=== PATIENT | female | born 1970 | race Two or more races ===

== ENCOUNTER 2018-04-09 18:58 | Inpatient (IN) | payer MEDICAID ==
[2018-04-09] MEDS ORDERED: LACTATED RINGER'S 1,000 ML IV (21:25)
[2018-04-09] MEDS ORDERED: CARBOPROST 250 MCG INJ IM (21:30)
[2018-04-09] MEDS ORDERED: LIDOCAINE 1% (MPF) 30 ML INJ INJ (21:30)
[2018-04-09] MEDS ORDERED: OXYTOCIN 30 UNITS/LR 500 ML IV ×3 (21:30)
[2018-04-09] MEDS ORDERED: METHYLERGONOVINE 0.2 MG INJ IM (21:30)
[2018-04-09] MEDS ORDERED: MISOPROSTOL 200 MCG TAB PR (21:30)
[2018-04-09 23:05] LABS: ADD MAN DIFF? NO
[2018-04-09 23:12] LABS: BASOPHILS % 0.3 % (0.0-2.0); EOSINOPHILS # 0.1 10^3/ul (0.0-0.5); EOSINOPHILS % 1.2 % (0.0-7.0); HEMATOCRIT 35.4 % (37.0-47.0); HEMOGLOBIN 11.8 g/dl (12.0-16.0); LYMPHOCYTES # 1.4 10^3/ul (0.8-2.9); LYMPHOCYTES % 17.9 % (15.0-51.0); MEAN CORPUSCULAR HEMOGLOBIN 31.4 pg (29.0-33.0); MEAN CORPUSCULAR HGB CONC 33.3 g/dl (32.0-37.0); MEAN CORPUSCULAR VOLUME 94.1 fl (82.0-101.0); MEAN PLATELET VOLUME 8.8 fl (7.4-10.4); MONOCYTE # 0.6 10^3/ul (0.3-0.9); MONOCYTES % 8.3 % (0.0-11.0); NEUTROPHIL # 5.4 10^3/ul (1.6-7.5); PLATELET COUNT 233 10^3/UL (140-415); RED BLOOD COUNT 3.76 10^6/ul (4.20-5.40); RED CELL DISTRIBUTION WIDTH 14.5 % (11.5-14.5)
[2018-04-09 23:12] LABS: WHITE BLOOD COUNT 7.7 10^3/ul (4.8-10.8)
[2018-04-09 23:33] LABS: INR 0.88; PT RATIO 0.9
[2018-04-09 23:34] LABS: PARTIAL THROMBOPLASTIN TIME 26.4 Sec (23.0-35.0)
[2018-04-10 00:03] LABS: HEPATITIS B SURFACE ANTIGEN NEGATIVE (NEGATIVE)
[2018-04-10] MEDS: LACTATED RINGER'S 1,000 ML IV ×4 (00:56→20:02)
[2018-04-10] MEDS: MISOPROSTOL 50 MCG CAPSULE PO ×2 (06:52→11:02)
[2018-04-10] MEDS: DEXTROSE 5%-LR 1,000 ML IV ×2 (08:55→17:19)
[2018-04-10 15:08] LABS: RAPID PLASMA REAGIN NONREACTIVE (NR)
[2018-04-10] MEDS: BUTORPHANOL 2 MG INJ IV ×2 (15:23→17:42)
[2018-04-10] MEDS ORDERED: DIPHENHYDRAMINE 50 MG INJ IV (20:00)
[2018-04-10] MEDS ORDERED: EPHEDrine SULFATE 50 MG/5 ML SYG IV (20:00)
[2018-04-10] MEDS ORDERED: NALOXONE (0.4 MG/ML) INJ IV (20:00)
[2018-04-10] MEDS ORDERED: ONDANSETRON 4 MG INJ IV (20:00)
[2018-04-10] MEDS ORDERED: FENTAnyl 2MCG/ML-ROPIV 0.2% 100 ML (20:04)
[2018-04-10] MEDS ORDERED: LIDOCAINE 1% (MPF) 30 ML INJ (22:04)
[2018-04-11] MEDS: LACTATED RINGER'S 1,000 ML IV ×2 (01:26→10:26)
[2018-04-11] MEDS: OXYTOCIN 30 UNITS/LR 500 ML IV ×2 (04:44→15:19)
[2018-04-11] MEDS: MINERAL OIL LIGHT 10 ML VIAL TOP (07:00)
[2018-04-11] MEDS: FENTAnyl 2MCG/ML-ROPIV 0.2% 100 ML BAG EPI (07:59)
[2018-04-11] MEDS: LACTATED RINGER'S 1,000 ML IV* ×2 (14:59→22:59)
[2018-04-11] MEDS ORDERED: DIPHENHYDRAMINE 25 MG CAP PO (15:00)
[2018-04-11] MEDS ORDERED: ZOLPIDEM 5 MG TAB PO (15:00)
[2018-04-11] MEDS ORDERED: ONDANSETRON 4 MG INJ IV (15:00)
[2018-04-11] MEDS ORDERED: OXYTOCIN 30 UNITS/LR 500 ML IV (15:00)
[2018-04-11] MEDS ORDERED: HYDROCODONE/APAP (5/325) TAB PO (15:00)
[2018-04-11] MEDS ORDERED: CARBOPROST 250 MCG INJ IM (15:00)
[2018-04-11] MEDS ORDERED: MISOPROSTOL 200 MCG TAB PR (15:00)
[2018-04-11] MEDS: IBUPROFEN 600 MG TAB PO ×2 (15:01→18:02)
[2018-04-11 17:04] LABS: HEMATOCRIT 32.2 % (37.0-47.0)
[2018-04-11] MEDS: LANOLIN 7 GM TUBE TOP (18:03)
[2018-04-11] MEDS: WITCH HAZEL/GLYCERIN PAD PR (18:03)
[2018-04-11] MEDS: SENNA/DOCUSATE NA (8.6MG/50MG) TAB PO (22:10)
[2018-04-12] MEDS: IBUPROFEN 600 MG TAB PO ×5 (00:36→23:32)
[2018-04-12] MEDS: LACTATED RINGER'S 1,000 ML IV* ×3 (06:59→22:59)
[2018-04-12] MEDS: LEVOTHYROXINE 50 MCG TAB PO (07:04)
[2018-04-12] MEDS ORDERED: LEVOTHYROXINE 50 MCG TAB PO (09:00)
[2018-04-12 09:46] LABS: ADD MAN DIFF? NO
[2018-04-12 09:52] LABS: BASOPHIL # 0.1 10^3/ul (0.0-0.1); BASOPHILS % 0.4 % (0.0-2.0); EOSINOPHILS # 0.2 10^3/ul (0.0-0.5); EOSINOPHILS % 1.2 % (0.0-7.0); HEMATOCRIT 28.4 % (37.0-47.0); HEMOGLOBIN 9.4 g/dl (12.0-16.0); LYMPHOCYTES # 1.6 10^3/ul (0.8-2.9); LYMPHOCYTES % 10.1 % (15.0-51.0); MEAN CORPUSCULAR HEMOGLOBIN 31.8 pg (29.0-33.0); MEAN CORPUSCULAR HGB CONC 33.1 g/dl (32.0-37.0); MEAN CORPUSCULAR VOLUME 95.9 fl (82.0-101.0); MEAN PLATELET VOLUME 9.5 fl (7.4-10.4); MONOCYTE # 1.1 10^3/ul (0.3-0.9); MONOCYTES % 6.8 % (0.0-11.0); NEUTROPHIL # 12.9 10^3/ul (1.6-7.5); PLATELET COUNT 198 10^3/UL (140-415); RED BLOOD COUNT 2.96 10^6/ul (4.20-5.40); RED CELL DISTRIBUTION WIDTH 14.9 % (11.5-14.5)
[2018-04-12 09:52] LABS: WHITE BLOOD COUNT 16.2 10^3/ul (4.8-10.8)
[2018-04-12] MEDS: SENNA/DOCUSATE NA (8.6MG/50MG) TAB PO ×2 (10:54→21:30)
[2018-04-13] MEDS: IBUPROFEN 600 MG TAB PO ×2 (05:58→11:30)
[2018-04-13] MEDS: LACTATED RINGER'S 1,000 ML IV* (06:59)
[2018-04-13] MEDS: LEVOTHYROXINE 50 MCG TAB PO (07:04)
[2018-04-13] MEDS: VARICELLA VACCINE LIVE/PF 1,350 UNIT/0.5 ML ML SC* (07:55)
[2018-04-13] MEDS: MEASLES,MUMPS,RUBELLA VACCINE INJ SC* (07:55)
[2018-04-13] MEDS: DIPHTH/TET/ACEL PERTUSS (ADULT) 0.5 ML VIAL IM* (07:55)
[2018-04-13] MEDS: SENNA/DOCUSATE NA (8.6MG/50MG) TAB PO (11:30)
== END 2018-04-13 18:07 | disposition home or self-care (01) | DRG 807 ==
LOC: OBT 18:58 → PP1 04-11 16:07 → L-D 18:59 → OBT 21:17 → L-D 21:17
PROVIDERS: Obstetrics & Gynecology
PROC: 3E033VJ Introduction of Other Hormone into Peripheral Vein, Percutaneous Approach (ICD-10-PCS; 2018-04-09)
PROC: 10E0XZZ Delivery of Products of Conception, External Approach (ICD-10-PCS; principal; 2018-04-11)
PROC: 0KQM0ZZ Repair Perineum Muscle, Open Approach (ICD-10-PCS; 2018-04-11)
DX: O36.63X0 Maternal care for excessive fetal growth, third trimester, not applicable or unspecified (principal); O70.1 Second degree perineal laceration during delivery; O99.284 Endocrine, nutritional and metabolic diseases complicating childbirth; E03.9 Hypothyroidism, unspecified; Z37.0 Single live birth; Z3A.40 40 weeks gestation of pregnancy
CPT/HCPCS: 62319; 76818; 85014; 85018; 85025; 85610; 85730; 86592; 86850; 86900; 86901; 87340; 90715; 90716; 99464

== ENCOUNTER 2018-11-30 19:45 | Emergency (ER) | payer MEDICAID ==
[2018-11-30 21:34] LABS: ADD MAN DIFF? NO
[2018-11-30 21:35] LABS: WHITE BLOOD COUNT 4.5 10^3/ul (4.8-10.8)
[2018-11-30 21:35] LABS: BASOPHIL # 0.1 10^3/ul (0.0-0.1); BASOPHILS % 1.1 % (0.0-2.0); EOSINOPHILS # 0.1 10^3/ul (0.0-0.5); EOSINOPHILS % 2.7 % (0.0-7.0); HEMATOCRIT 38.6 % (37.0-47.0); HEMOGLOBIN 13.2 g/dl (12.0-16.0); LYMPHOCYTES # 1.7 10^3/ul (0.8-2.9); LYMPHOCYTES % 36.8 % (15.0-51.0); MEAN CORPUSCULAR HEMOGLOBIN 31.4 pg (29.0-33.0); MEAN CORPUSCULAR HGB CONC 34.2 g/dl (32.0-37.0); MEAN CORPUSCULAR VOLUME 91.9 fl (82.0-101.0); MONOCYTE # 0.4 10^3/ul (0.3-0.9); MONOCYTES % 8.4 % (0.0-11.0); NEUTROPHIL # 2.3 10^3/ul (1.6-7.5); NEUTROPHILS % 50.6 % (39.0-77.0); PLATELET COUNT 284 10^3/UL (140-415); RED CELL DISTRIBUTION WIDTH 13.3 % (11.5-14.5)
[2018-11-30 21:39] LABS: ADD UMIC YES; UR ASCORBIC ACID NEGATIVE (NEGATIVE); UR BILIRUBIN (Dip) NEGATIVE (NEGATIVE); UR BLOOD (Dip) 1+ mg/dL (NEGATIVE); UR CLARITY SLIGHTLY CLOUDY (CLEAR); UR COLOR YELLOW (YELLOW); UR GLUCOSE (Dip) NEGATIVE (NEGATIVE); UR KETONES (Dip) NEGATIVE (NEGATIVE); UR LEUKOCYTE ESTERASE (Dip) NEGATIVE Leu/ul (NEGATIVE); UR NITRITE (Dip) NEGATIVE (NEGATIVE); UR RBC 1 /HPF (0-5); UR SPECIFIC GRAVITY (Dip) 1.025 (1.003-1.030); UR SQUAMOUS EPITHELIAL CELL FEW /HPF (FEW); UR TOTAL PROTEIN (Dip) NEGATIVE (NEGATIVE); UR UROBILINOGEN (Dip) NEGATIVE (NEGATIVE); UR WBC 3 /HPF (0-5)
[2018-11-30 21:55] LABS: INR 0.89; PARTIAL THROMBOPLASTIN TIME 23.9 Sec (23.0-35.0); PROTIME 12.1 Sec (11.9-14.9); PT RATIO 0.9
[2018-11-30 22:00] LABS: ANION GAP 10 (5-13); BLOOD UREA NITROGEN 16 mg/dl (7-20); CALCIUM 9.9 mg/dl (8.4-10.2); CARBON DIOXIDE 27 mmol/L (21-31); CHLORIDE 103 mmol/L (97-110); CREATININE 0.73 mg/dl (0.44-1.00); Estimated GFR > 60 mL/min (>60); GLUCOSE 99 mg/dl (70-220); POTASSIUM 3.6 mmol/L (3.5-5.1); SODIUM 140 mmol/L (135-144)
== END 2018-11-30 23:07 | disposition home or self-care (01) ==
LOC: FTE 19:45
DX: O20.9 Hemorrhage in early pregnancy, unspecified (principal); Z3A.09 9 weeks gestation of pregnancy
CPT/HCPCS: 36415; 76801; 80048; 81001; 84702; 84703; 85025; 85610; 85730; 86900; 86901; 99284-25

== ENCOUNTER 2019-01-26 09:30 | Inpatient (IN) | payer MEDICAID ==
[2019-01-26] MEDS ORDERED: MISOPROSTOL 50 MCG CAPSULE VAG (13:00)
[2019-01-26] MEDS ORDERED: CARBOPROST 250 MCG INJ IM (13:00)
[2019-01-26] MEDS ORDERED: LIDOCAINE 1% (MPF) 30 ML INJ INJ (13:00)
[2019-01-26] MEDS ORDERED: OXYTOCIN 30 UNITS/LR 500 ML IV (13:00)
[2019-01-26] MEDS ORDERED: METHYLERGONOVINE 0.2 MG INJ IM (13:00)
[2019-01-26] MEDS ORDERED: IBUPROFEN 600 MG TAB PO (13:00)
[2019-01-26] MEDS: LACTATED RINGER'S 1,000 ML IV ×2 (13:29→23:29)
[2019-01-26 13:37] LABS: ADD MAN DIFF? NO
[2019-01-26 13:39] LABS: BASOPHILS % 0.8 % (0.0-2.0); EOSINOPHILS # 0.1 10^3/ul (0.0-0.5); EOSINOPHILS % 1.4 % (0.0-7.0); HEMATOCRIT 42.5 % (37.0-47.0); HEMOGLOBIN 14.1 g/dl (12.0-16.0); LYMPHOCYTES # 1.2 10^3/ul (0.8-2.9); LYMPHOCYTES % 23.3 % (15.0-51.0); MEAN CORPUSCULAR HEMOGLOBIN 31.5 pg (29.0-33.0); MEAN CORPUSCULAR HGB CONC 33.2 g/dl (32.0-37.0); MEAN CORPUSCULAR VOLUME 95.1 fl (82.0-101.0); MEAN PLATELET VOLUME 9.1 fl (7.4-10.4); MONOCYTE # 0.3 10^3/ul (0.3-0.9); MONOCYTES % 6.1 % (0.0-11.0); NEUTROPHIL # 3.5 10^3/ul (1.6-7.5); PLATELET COUNT 250 10^3/UL (140-415); RED BLOOD COUNT 4.47 10^6/ul (4.20-5.40); RED CELL DISTRIBUTION WIDTH 12.8 % (11.5-14.5)
[2019-01-26 13:39] LABS: WHITE BLOOD COUNT 5.1 10^3/ul (4.8-10.8)
[2019-01-26 13:58] LABS: INR 0.87; PROTIME 11.9 Sec (11.9-14.9); PT RATIO 0.9
[2019-01-26 13:59] LABS: PARTIAL THROMBOPLASTIN TIME 29.2 Sec (23.0-35.0)
[2019-01-26] MEDS: MISOPROSTOL 200 MCG TAB VAG ×2 (14:52→23:29)
[2019-01-26 18:49] LABS: RAPID PLASMA REAGIN NONREACTIVE (NR)
[2019-01-26] MEDS: MISOPROSTOL 200 MCG TAB PR (19:22)
[2019-01-27] MEDS: OXYTOCIN 30 UNITS/LR 500 ML IV ×2 (02:55→03:20)
[2019-01-27] MEDS ORDERED: CEFAZOLIN 2 GM/50 ML (PMX) 50 ML IVPB (03:18)
[2019-01-27] MEDS ORDERED: OXYTOCIN 30 UNITS/LR 500 ML IV ×2 (03:50→04:00)
[2019-01-27] MEDS: CEFAZOLIN 2 GM/50 ML (PMX) 50 ML IVPB (03:52)
[2019-01-27] MEDS ORDERED: MAGNESIUM HYDROXIDE 30ML CUP PO (04:00)
[2019-01-27] MEDS ORDERED: WITCH HAZEL/GLYCERIN PAD PR (04:00)
[2019-01-27] MEDS ORDERED: IBUPROFEN 600 MG TAB PO (04:00)
[2019-01-27] MEDS ORDERED: ONDANSETRON 4 MG INJ IV (04:00)
[2019-01-27] MEDS ORDERED: SENNA/DOCUSATE NA (8.6MG/50MG) TAB PO (04:00)
[2019-01-27] MEDS ORDERED: LANOLIN HPA 1 PKT TOP (04:00)
[2019-01-27] MEDS ORDERED: ACETAMINOPHEN 325 MG TAB PO ×2 (04:00)
[2019-01-27] MEDS ORDERED: BENZOCAINE 20% 56 ML SPRAY TOP (04:00)
[2019-01-27] MEDS ORDERED: METHYLERGONOVINE 0.2 MG INJ IM (04:00)
[2019-01-27] MEDS ORDERED: MISOPROSTOL 200 MCG TAB PR (04:00)
[2019-01-27] MEDS ORDERED: DIBUCAINE 1% 30 GM OINT TOP (04:00)
[2019-01-27] MEDS ORDERED: CARBOPROST 250 MCG INJ IM (04:00)
[2019-01-27 04:29] LABS: ADD MAN DIFF? NO
[2019-01-27 04:31] LABS: BASOPHILS % 0.6 % (0.0-2.0); EOSINOPHILS # 0.1 10^3/ul (0.0-0.5); EOSINOPHILS % 1.6 % (0.0-7.0); HEMATOCRIT 36.5 % (37.0-47.0); HEMOGLOBIN 12.2 g/dl (12.0-16.0); LYMPHOCYTES # 1.6 10^3/ul (0.8-2.9); LYMPHOCYTES % 25.4 % (15.0-51.0); MEAN CORPUSCULAR HEMOGLOBIN 31.3 pg (29.0-33.0); MEAN CORPUSCULAR HGB CONC 33.4 g/dl (32.0-37.0); MEAN CORPUSCULAR VOLUME 93.6 fl (82.0-101.0); MEAN PLATELET VOLUME 8.8 fl (7.4-10.4); MONOCYTE # 0.4 10^3/ul (0.3-0.9); MONOCYTES % 6.8 % (0.0-11.0); NEUTROPHIL # 4.1 10^3/ul (1.6-7.5); NEUTROPHILS % 65.3 % (39.0-77.0); PLATELET COUNT 211 10^3/UL (140-415); RED CELL DISTRIBUTION WIDTH 12.6 % (11.5-14.5)
[2019-01-27 04:31] LABS: WHITE BLOOD COUNT 6.3 10^3/ul (4.8-10.8)
[2019-01-27 05:01] LABS: ALANINE AMINOTRANSFERASE 34 IU/L (13-69); ALBUMIN 2.9 g/dl (3.3-4.9); ALBUMIN/GLOBULIN RATIO 1.16; ALKALINE PHOSPHATASE 62 IU/L (42-121); ANION GAP 4 (5-13); ASPARTATE AMINO TRANSFERASE 21 IU/L (15-46); BILIRUBIN,INDIRECT 0.5 mg/dl (0-1.1); BILIRUBIN,TOTAL 0.5 mg/dl (0.2-1.3); BLOOD UREA NITROGEN 10 mg/dl (7-20); CALCIUM 8.8 mg/dl (8.4-10.2); CARBON DIOXIDE 26 mmol/L (21-31); CHLORIDE 106 mmol/L (97-110); CREATININE 0.49 mg/dl (0.44-1.00); Estimated GFR > 60 mL/min (>60); GLUCOSE 87 mg/dl (70-220); POTASSIUM 3.7 mmol/L (3.5-5.1); SODIUM 136 mmol/L (135-144); TOTAL PROTEIN 5.4 g/dl (6.1-8.1)
[2019-01-27 05:49] LABS: HEPATITIS C VIRAL ANTIBODY NEGATIVE (NEGATIVE)
[2019-01-27] MEDS: LACTATED RINGER'S 1,000 ML IV* (06:23)
[2019-01-27 07:59] LABS: HIV 1&2 ANTIBODY NEGATIVE (NEGATIVE)
[2019-01-27 10:00] LABS: ADD UMIC YES; UR ASCORBIC ACID NEGATIVE (NEGATIVE); UR BACTERIA FEW /HPF (NONE SEEN); UR BILIRUBIN (Dip) NEGATIVE (NEGATIVE); UR BLOOD (Dip) 3+ mg/dL (NEGATIVE); UR CLARITY SLIGHTLY CLOUDY (CLEAR); UR COLOR YELLOW (YELLOW); UR GLUCOSE (Dip) NEGATIVE (NEGATIVE); UR KETONES (Dip) NEGATIVE (NEGATIVE); UR LEUKOCYTE ESTERASE (Dip) TRACE Leu/ul (NEGATIVE); UR NITRITE (Dip) NEGATIVE (NEGATIVE); UR RBC > 182 /HPF (0-5); UR SPECIFIC GRAVITY (Dip) 1.014 (1.003-1.030); UR TOTAL PROTEIN (Dip) NEGATIVE (NEGATIVE); UR UROBILINOGEN (Dip) NEGATIVE (NEGATIVE); UR WBC 18 /HPF (0-5)
[2019-01-27 10:20] LABS: AMPHETAMINE/METHAMPHETAMINE Negative (NEGATIVE); BARBITURATES Negative (NEGATIVE); BENZODIAZEPINES Negative (NEGATIVE); CANNABINOIDS Negative (NEGATIVE); COCAINE Negative (NEGATIVE); OPIATES Negative (NEGATIVE)
[2019-01-28] MEDS ORDERED: LEVOTHYROXINE 50 MCG TAB PO (06:00)
== END 2019-01-27 15:47 | disposition home or self-care (01) | DRG 807 ==
LOC: L-D 09:30 → PP2 01-27 05:51 → L-D 09:37
PROVIDERS: Obstetrics & Gynecology
PROC: 10E0XZZ Delivery of Products of Conception, External Approach (ICD-10-PCS; principal; 2019-01-27)
DX: O60.12X0 Preterm labor second trimester with preterm delivery second trimester, not applicable or unspecified (principal); Z37.1 Single stillbirth; Z3A.17 17 weeks gestation of pregnancy
CPT/HCPCS: 76815; 80053; 80307; 81001; 85025; 85610; 85730; 86592; 86703; 86803; 86850; 86900; 86901; 88305